=== PATIENT | female | born 1980 | race African-American/Black ===

== ENCOUNTER 2021-02-08 14:40 | Inpatient (IN) | payer OTHER ==
[2021-02-08] MEDS ORDERED: CITRIC ACID/SODIUM CITRATE 30 ML UNIT-DOSE CUP PO ONE (15:10)
[2021-02-08] MEDS: ELECTROLYTE-148 SOLN 1,000 ML IV SCH (15:40)
[2021-02-08 15:51] VITALS: BMI 35.7
[2021-02-08 16:08] LABS: BASO % 0.2 % (0-2.0); EOS % 1.2 % (0-4.5); HEMATOCRIT 34.4 % (32.4-45.2); HEMOGLOBIN 11.7 GM/dL (10.7-15.3); LYMPH % 21.5 % (8-40); MCH 28.2 pg (25.7-33.7); MCHC 33.9 g/dl (32.0-36.0); MEAN PLT VOLUME 7.2 fl (7.5-11.1); MONO % 6.2 % (3.8-10.2); NEUT % 70.9 % (42.8-82.8); PLATELET COUNT 319 K/MM3 (134-434); RBC 4.14 M/mm3 (3.60-5.2); RDW 16.5 % (11.6-15.6); WHITE BLOOD COUNT 7.7 K/mm3 (4.0-10.0)
[2021-02-08 16:18] LABS: INR 0.95 (0.83-1.09); PROTHROMBIN TIME (PATIENT) 11.5 SEC (9.7-13.0)
[2021-02-08 16:21] LABS: ACTIVATED PTT 24.8 SECONDS (25.2-36.5)
[2021-02-08 16:26] LABS: BLOOD UREA NITROGEN 6.2 mg/dL (7-18); CALCIUM 9.3 mg/dL (8.5-10.1)
[2021-02-08 16:30] LABS: CREATININE 0.6 mg/dL (0.55-1.3)
[2021-02-08] MEDS ORDERED: METHYLERGONOVINE MALEATE 0.2 MG/1 ML AMP IM PRN (16:39)
[2021-02-08] MEDS ORDERED: SENNOSIDES/DOCUSATE COMBO (SENNA PLUS) TABLET (UD) PO PRN (16:39)
[2021-02-08] MEDS ORDERED: IBUPROFEN 800 MG/8 ML IJ IVPB PRN (16:39)
[2021-02-08] MEDS ORDERED: ePHEDrine SULFATE 50 MG/1 ML AMPULE ONE (17:26)
[2021-02-08] MEDS: OXYTOCIN 20 UNITS in 0.9% NS 20 UNIT/1,000 ML INFUS.BAG IV SCH (17:50)
[2021-02-08 17:53] LABS: CORD BASE EXCESS -2.4 mmol/L (0-2); CORD PCO2 46.7 mmHg (30-78); CORD pH 7.328 (7.14-7.44)
[2021-02-08 17:57] LABS: CORD HCO3 22.5 mmHg (20-29); CORD PCO2 56.8 mmHg (30-78); CORD pH 7.215 (7.14-7.44)
[2021-02-08] MEDS ORDERED: OXYTOCIN 20 UNITS in 0.9% NS 20 UNIT/1,000 ML INFUS.BAG IV ONE (18:42)
[2021-02-08] MEDS ORDERED: ONDANSETRON 4 MG/2 ML VIAL IVPB PRN ×2 (20:42→20:58)
[2021-02-09] MEDS ORDERED: oxyCODONE HCL 5 MG TABLET PO PRN ×2 (08:00→09:00)
[2021-02-09 09:07] LABS: BASO % 0.1 % (0-2.0); HEMATOCRIT 31.9 % (32.4-45.2); HEMOGLOBIN 10.8 GM/dL (10.7-15.3); LYMPH % 13.6 % (8-40); MCH 28.2 pg (25.7-33.7); MCHC 33.7 g/dl (32.0-36.0); MEAN CELL VOLUME 83.7 fl (80-96); MEAN PLT VOLUME 7.5 fl (7.5-11.1); MONO % 6.6 % (3.8-10.2); NEUT % 78.7 % (42.8-82.8); PLATELET COUNT 298 K/MM3 (134-434); RBC 3.81 M/mm3 (3.60-5.2); RDW 16.6 % (11.6-15.6); WHITE BLOOD COUNT 9.5 K/mm3 (4.0-10.0)
[2021-02-09] MEDS: IBUPROFEN 600 MG TABLET (FP) PO PRN ×2 (09:12→18:33)
[2021-02-09] MEDS: SIMETHICONE 80 MG TAB.CHEW (FP) PO PRN ×2 (09:12→18:32)
[2021-02-09] MEDS: ACETAMINOPHEN 325 MG TABLET (FP) PO PRN ×2 (09:13→18:32)
[2021-02-09] MEDS: PRENATAL VITAMINS W/ FOLIC ACID TABLET (FP) PO SCH (12:14)
[2021-02-09] MEDS ORDERED: BISACODYL 10 MG SUPP.RECT RC PRN (16:39)
[2021-02-10] MEDS: ACETAMINOPHEN 325 MG TABLET (FP) PO PRN ×2 (04:49→15:13)
[2021-02-10] MEDS: SIMETHICONE 80 MG TAB.CHEW (FP) PO PRN (04:50)
[2021-02-10] MEDS: IBUPROFEN 600 MG TABLET (FP) PO PRN ×2 (04:50→15:12)
[2021-02-10] MEDS: ELECTROLYTE-148 SOLN 1,000 ML IV SCH (06:03)
[2021-02-10] MEDS: OXYTOCIN 20 UNITS in 0.9% NS 20 UNIT/1,000 ML INFUS.BAG IV SCH (06:03)
[2021-02-10] MEDS: PRENATAL VITAMINS W/ FOLIC ACID TABLET (FP) PO SCH (10:38)
[2021-02-11] MEDS: IBUPROFEN 600 MG TABLET (FP) PO PRN ×2 (02:38→09:13)
[2021-02-11] MEDS: ACETAMINOPHEN 325 MG TABLET (FP) PO PRN ×2 (02:38→09:12)
[2021-02-11 08:03] LABS: BASO % 0.3 % (0-2.0); EOS % 3.4 % (0-4.5); HEMATOCRIT 31.5 % (32.4-45.2); HEMOGLOBIN 10.6 GM/dL (10.7-15.3); LYMPH % 29.8 % (8-40); MCH 27.9 pg (25.7-33.7); MCHC 33.8 g/dl (32.0-36.0); MEAN CELL VOLUME 82.6 fl (80-96); MONO % 6.4 % (3.8-10.2); NEUT % 60.1 % (42.8-82.8); PLATELET COUNT 339 K/MM3 (134-434); RBC 3.81 M/mm3 (3.60-5.2); RDW 16.9 % (11.6-15.6); WHITE BLOOD COUNT 7.7 K/mm3 (4.0-10.0)
[2021-02-11] MEDS: PRENATAL VITAMINS W/ FOLIC ACID TABLET (FP) PO SCH (09:12)
[2021-02-11] MEDS: SIMETHICONE 80 MG TAB.CHEW (FP) PO PRN (09:14)
[2021-02-11 12:17] VITALS: BP 148/87; PULSE 74; TEMP 98.4
== END 2021-02-11 12:00 | disposition home or self-care (01) | DRG 788 ==
LOC: JLDR 14:40 → J3W 19:51
PROVIDERS: ADMIT Obstetrics & Gynecology; ATTEND Obstetrics & Gynecology
PROC: 10D00Z1 Extraction of Products of Conception, Low, Open Approach (ICD-10-PCS; principal; 2021-02-08)
DX: O34.219 Maternal care for unspecified type scar from previous cesarean delivery (principal); O36.5930 Maternal care for other known or suspected poor fetal growth, third trimester, not applicable or unspecified; Z3A.39 39 weeks gestation of pregnancy; Z37.0 Single live birth
CPT/HCPCS: 36415; 36600; 80048; 82803; 85025; 85610; 85730; 86780; 86850; 86900; 86901; 87340; 88307-TC; C9803; U0003; U0005